=== PATIENT | male | born 1980 | race Caucasian/White ===

== ENCOUNTER → 2025-05-04 19:49 | Outpatient (REF) | payer OTHER, SELFPAY | LOC: PAVMRI 19:49 | PROVIDERS: ATTENDING PHYSICIAN Orthopaedic Surgery Hand Surgery | DX: S69.92XA Unspecified injury of left wrist, hand and finger(s), initial encounter (principal); M25.532 Pain in left wrist; S63.8X2A Sprain of other part of left wrist and hand, initial encounter | CPT/HCPCS: 73221 ==